=== PATIENT | male | born 1960 | race Caucasian/White ===

== ENCOUNTER → 2017-08-04 | Outpatient (CLI) | payer MEDICARE ==
[~2017-08-04] MED LIST: ALLO100T PO; ASPI325T PO; ATEN-102 PO; COLB500.5 PO; HYDR10TA16 PO; INDO25CA PO; JANU50TA9 PO; LISI-360 PO; LORT7.5T3 PO; VYTO10TA29 PO
--- NOTE | 2017-08-04 14:10 | RADRPT ---
EXAM DATE/TIME: 08/04/2017 11:48 [facility] COMPARISON: No previous studies available for comparison. INDICATIONS : Right side low back pain. MEDICAL HISTORY : None. SURGICAL HISTORY : Lumbar laminectomy ENCOUNTER: Initial ACUITY: >1 year PAIN SCORE: 2/10 LOCATION: Right low back FINDINGS: Degenerative changes are noted throughout the thoracolumbar spine. There is significant disc space na rrowing at L4-5 and L5-S1. There is no acute compression fracture, spondylolisthesis or spondylolysis . CONCLUSION: 1. No acute compression fracture, spondylolisthesis or spondylolysis. 2. Degenerative changes throughout the thoracolumbar spine. 3. Degenerative disc disease at L4-5 and L5-S1. Juan Luis Sears MD on August 04, 2017 at 14:05 Board Certified Radiologist. This report was verified electronically.
--- NOTE | 2017-08-04 14:11 | RADRPT ---
EXAM DATE/TIME: 08/04/2017 11:49 [facility] COMPARISON: No previous studies available for comparison. INDICATIONS : Right side mid back pain. MEDICAL HISTORY : None. SURGICAL HISTORY : lumbar laminectomy ENCOUNTER: Initial ACUITY: >1 year PAIN SCORE: 2/10 LOCATION: Right mid back FINDINGS: Degenerative changes are noted throughout the thoracic spine. There is no acute compression fracture or subluxation. The pedicles are intact bilaterally. Minimal scoliosis is noted. CONCLUSION: 1. No acute compression fracture or subluxation. 2. Minimal scoliosis of the thoracic spine. 3. Degenerative changes throughout the thoracic spine. Juan Luis Sears MD on August 04, 2017 at 14:07 Board Certified Radiologist. This report was verified electronically.
== END ==
LOC: HRAD 11:32
PROVIDERS: ATTEND Nurse Practitioner Family
DX: M51.27 Other intervertebral disc displacement, lumbosacral region (principal); M12.9 Arthropathy, unspecified
CPT/HCPCS: 72072; 72110